=== PATIENT | female | born 1955 | race Caucasian/White ===

== ENCOUNTER 2019-10-19 19:13 | Emergency (ER) | payer SELFPAY ==
[~2019-10-19] VITALS: Ht 142.2 cm; Wt 47.5 kg
[2019-10-19] MEDS ORDERED: AMOXICILLIN/POTASSIUM CLAVULANATE 875/125MG TAB PO ONE (20:30)
[2019-10-19] MEDS ORDERED: ACETAMINOPHEN 325MG TABLET PO ONE (20:30)
[2019-10-19 20:35] VITALS: BP 141/79
== END 2019-10-19 20:36 | disposition home or self-care (01) ==
LOC: ER 19:13
DX: H66.92 Otitis media, unspecified, left ear (principal); H72.92 Unspecified perforation of tympanic membrane, left ear
CPT/HCPCS: 99283